=== PATIENT | male | born 1975 | race American Indian/Alaskan Native ===

== ENCOUNTER 2019-06-24 10:18 | Emergency (ER) | payer MEDICAID ==
[2019-06-24 11:14] VITALS: BP 130/64
--- NOTE | 2019-06-24 11:28 | Event Note ---
ED Screening Note Date of service: 06/24/19 Time: 11:27 ED Screening Note: fell and twisted ankle this morning right ankl;e swelling This initial assessment/diagnostic orders/clinical plan/treatment(s) is/are subject to change based on patients health status, clinical progression and re-assessment by fellow clinical providers in the ED. Further treatment and workup at subsequent clinical providers discretion. Patient/guardian urged not to elope from the ED as their condition may be serious if not clinically assessed and managed. Initial orders include: xr ankle acc eval
--- NOTE | 2019-06-24 12:18 | XRay Report ---
RIGHT ANKLE 2 VIEWS INDICATION / CLINICAL INFORMATION: Right ankle swelling. COMPARISON: None available. FINDINGS: This exam is limited by the lack of a complete right ankle series. BONES and JOINT(S): There is a comminuted fracture of the distal tibial shaft with surrounding perios teal reaction. A comminuted fracture of the posterior malleolus is also noted. An oblique fracture th rough the lateral malleolus is not well visualized. No significant dislocation is identified within t he constraints of this exam. No significant arthritis is seen. SOFT TISSUES: Diffuse edema is present throughout the ankle. ADDITIONAL FINDINGS: None. IMPRESSION: Trimalleolar right ankle fractures. Periosteal reaction along the distal tibia may be related to heal ing of a prior tibial shaft fracture. Please correlate with the clinical findings. Signer Name: Hay Pantoja MD Signed: 06/24/2019 12:14 PM Workstation Name: [id number]
[2019-06-24] MEDS ORDERED: HYDROcodone/ACETAMINOPHEN 10-325MG TAB PO ONE (12:36)
--- NOTE | 2019-06-24 15:01 | Emergency Department Report ---
ED Lower Extremity HPI - General Chief Complaint: Extremity Injury, Lower Stated Complaint: R ANKLE INJURY DUE TO FALL Time Seen by Provider: 06/24/19 12:36 Source: patient Mode of arrival: Wheelchair Limitations: No Limitations - History of Present Illness Initial Comments: This is a 44-year-old male nontoxic, well nourished in appearance, no acute sig ns of distress presents to the ED with c/o of right ankle pain 3 weeks. Patients father stated had a twist in ankle and fell to ankle area 3 weeks ago. Father stated patient has brain tumor and does not remember a lot but incident happened 3 weeks. Patient denies any other pain. Denies any neck or head pains. Denies any other trauma. Patient denies any numbness, tingling, fever, chills, nausea, vomiting, chest pain, shortness of breath, headache, stiff neck. Patient denies any joint swelling or joint redness. Patient denies decreased range of motion. Patient stated has decreased gait due to pain. Father stated has allergies to sulfa. MD Complaint: ankle injury -: week(s) (3) Injury: Ankle: Right Severity: mild Severity scale (0 -10): 8 Improves With: immobilization Worsens With: weight bearing, movement, palpation Associated Symptoms: swelling, able to partially bear weight, ambulatory. denies: snap/pop sensation, numbness, tingling, unable to bear weight - Related Data Previous Rx's Medication Instructions Recorded Last Taken Type Acetaminophen/Codeine [Tylenol 1 tab PO Q6H PRN #12 tab 06/24/19 Unknown Rx /Codeine # 3 tab] Allergies Allergy/AdvReac Type Severity Reaction Status Date / Time Sulfa (Sulfonamide Allergy Rash Verified 06/24/19 11:14 Antibiotics) ED Review of Systems ROS: Stated complaint: R ANKLE INJURY DUE TO FALL Other details as noted in HPI Constitutional: denies: chills, fever Eyes: denies: eye pain, eye discharge, vision change ENT: denies: ear pain, throat pain Respiratory: denies: cough, shortness of breath, wheezing Cardiovascular: denies: chest pain, palpitations Endocrine: no symptoms reported Gastrointestinal: denies: abdominal pain, nausea, diarrhea Genitourinary: denies: urgency, dysuria Musculoskeletal: denies: back pain, joint swelling, arthralgia Skin: denies: rash, lesions Neurological: denies: headache, weakness, paresthesias Psychiatric: denies: anxiety, depression Hematological/Lymphatic: denies: easy bleeding, easy bruising ED Past Medical Hx - Past Medical History Previous Medical History?: Yes Additional medical history: "hypoglycemic" - Surgical History Past Surgical History?: Yes Additional Surgical History: Brain tumor (1986) removal and shunt placement - Social History Smoking Status: Current Every Day Smoker - Medications Home Medications: Home Medications Medication Instructions Recorded Confirmed Last Taken Type Acetaminophen/Codeine [Tylenol 1 tab PO Q6H PRN #12 tab 06/24/19 Unknown Rx /Codeine # 3 tab] ED Physical Exam - General Limitations: No Limitations General appearance: alert, in no apparent distress - Head Head exam: Present: atraumatic, normocephalic - Eye Eye exam: Present: normal appearance - Neck Neck exam: Present: normal inspection, full ROM - Extremities Exam Extremities exam: Present: normal inspection, full ROM, tenderness, normal capillary refill. Absent: joint swelling, calf tenderness - Expanded Lower Extremity Exam Right Hip exam: Present: normal inspection, full ROM. Absent: tenderness, swelling Upper Leg exam: Present: normal inspection, full ROM. Absent: tenderness, swelling Knee exam: Present: normal inspection, full ROM. Absent: tenderness, swelling, abrasion Lower Leg exam: Present: normal inspection, full ROM. Absent: tenderness, swelling Ankle exam: Present: normal inspection, full ROM, tenderness, swelling, ecchymosis. Absent: abrasion, laceration, deformity, crepidus, dislocation, erythema, anterior draw sign Foot/Toe exam: Present: normal inspection, full ROM. Absent: tenderness, swelling Neuro vascular tendon exam: Present: no vascular compromise. Absent: pulse def icit, abnormal cap refill, sensory deficit, tendon deficit, extremity cold to touch, pallor, foot drop Gait: Positive: observed and limited by pain 1 - pain here - Back Exam Back exam: Present: normal inspection, full ROM. Absent: tenderness, CVA tenderness (R), CVA tenderness (L), muscle spasm, paraspinal tenderness, vertebral tenderness, rash noted - Neurological Exam Neurological exam: Present: alert, oriented X3, normal gait - Psychiatric Psychiatric exam: Present: normal affect, normal mood - Skin Skin exam: Present: warm, dry, intact, normal color. Absent: rash ED Course Vital Signs 06/24/19 11:11 Temperature 98.3 F Pulse Rate 76 Respiratory 20 Rate Blood Pressure 130/64 O2 Sat by Pulse 100 Oximetry - Reevaluation(s) Reevaluation #1: 06/24/19 15:00 Patient is speaking in full sentences with no signs of distress noted. - Consultations Consultation #1: 06/24/19 15:02 Patient has been consulted with Rhoda Belcher about patient history, physical exam, and xrays and agrees to ED plan of care and discharge plan of care. ED Lower Extremity MDM - Medical Decision Making This is a 44-year-old male that presents with right ankle fracture. Patient is stable and was examined by me. I referred patient to an orthopedic doctor for further evaluation for possible MRI. X-ray has been obtained and dictated by the radiologist. Patient is notified of the x-ray report with noted by the patient. Patient received a Daniel splint and received crutches and was educated by RN how to use crutches. Post splint assessment: neurovasular intact; normal cap refill <2 second; normal sensation; denies decreaed sensation; normal ROM of digits. Patient was instructed to RICE therapy. Patient received Norman for pain. Patient is discharged with Tylenol with codeine. At time of discharge, the patient does not seem toxic or ill in appearance. No acute signs of distress noted. Patient agrees to discharge treatment plan of care. No further questions noted by the patient. Critical care attestation.: If time is entered above; I have spent that time in minutes in the direct care of this critically ill patient, excluding procedure time. ED Disposition Clinical Impression: Closed right ankle fracture Qualifiers: Encounter type: initial encounter Qualified Code(s): S82.891A - Other fracture of right lower leg, initial encounter for closed fracture Disposition: DC-01 TO HOME OR SELFCARE Is pt being admited?: No Does the pt Need Aspirin: No Condition: Stable Instructions: Ankle Fracture (ED), RICE Therapy (ED), Splint Care (ED), Crutch Instructions (ED), Acetaminophen/Codeine (By mouth) Additional Instructions: Follow-up with a orthopedic doctor in 3-5 days or if symptoms worsen and continu e return to emergency room as soon as possible. Do not operate any machinery while taking Tylenol with codeine as this may cause drowsiness. Prescriptions: Acetaminophen/Codeine [Tylenol /Codeine # 3 tab] 1 tab PO Q6H PRN #12 tab PRN Reason: Pain , Severe (7-10) Referrals: PRIMARY CARE, [Primary Care Provider] - 3-5 Days NURY GUERRERO MD [Staff Physician] - 3-5 Days [facility] [Outside] - 3-5 Days
== END 2019-06-24 15:09 | disposition home or self-care (01) ==
LOC: ED 10:18
DX: S82.851A Displaced trimalleolar fracture of right lower leg, initial encounter for closed fracture (principal); W18.30XA Fall on same level, unspecified, initial encounter; Y93.89 Activity, other specified; Y92.89 Other specified places as the place of occurrence of the external cause; Y99.8 Other external cause status
CPT/HCPCS: 99284